=== PATIENT | male | born 1960 | race Caucasian/White ===

== ENCOUNTER 2024-03-06 09:56 | Outpatient (REF) | payer MEDICAID, SELFPAY ==
[2024-03-06 11:27] LABS: MANUAL DIFF FLAG NO
[2024-03-06 11:40] LABS: Basophils Absolute Auto 0.1 X10*3/uL (0.0-0.2); Eosinophils Absolute Auto 0.2 X10*3/uL (0.0-0.4); Eosinophils Percent Auto 3.4 % (0-4); Hematocrit 45.6 % (42.0-52.0); Hemoglobin 15.7 g/dl (14.0-18.0); Imm Gran Abs Auto 0.02 X10*3/uL (0.00-0.03); Imm Gran Pct Auto 0.3 % (0.0-0.4); Lymphocytes Absolute Auto 2.7 X10*3/uL (1.2-4.9); Lymphocytes Percent Auto 38.5 % (20-40); Mean Corpuscular HGB Conc 34.4 g/dl (31.0-36.0); Mean Corpuscular Hemoglobin 33.9 pg (27.0-33.0); Mean Corpuscular Volume 98.5 fL (80.0-98.0); Mean Platelet Volume 11.5 fL (9.4-12.4); Monocytes Percent Auto 13.7 % (2-11); Neutrophils Percent Auto 43.1 % (45-73); Platelet Count 217 X10*3/uL (160-400); Red Blood Count 4.63 X10*6/uL (4.60-5.80); Red Cell Distribution Width 13.8 % (11.0-16.0)
[2024-03-06 12:07] LABS: Albumin Level 4.3 g/dL (3.5-5.0); Alkaline Phosphatase 86 U/L (39-117); Anion Gap 13 (12-20); Aspartate Amino Transferase 27 U/L (5-37); Bilirubin Total 0.4 mg/dL (0.0-1.0); Blood Urea Nitrogen 14 mg/dL (9-16); Calcium 9.8 mg/dL (8.4-10.2); Carbon Dioxide 23 mmol/L (22-29); Chloride 105 mmol/L (96-108); Cholesterol 121 mg/dL (<200); Estimated Glomerular Filt Rate > 60; Glucose Random 163 mg/dL (60-115); HDL Cholesterol 44 mg/dL (>40); LDL Cholesterol Calculated 63 mg/dL (<100); Potassium 3.7 mmol/L (3.3-5.1); Sodium 137 mmol/L (135-145); Total Protein 7.8 g/dL (6.5-8.0); Triglycerides 70 mg/dL (<150)
[2024-03-06 12:27] LABS: Creatinine Urine 71.18 mg/dL; Microalbum/Creatinine Ratio Ur 12.6 ug/mg cr (<30)
[2024-03-06 12:47] LABS: Alanine Aminotransferase 45 U/L (0-40)
== END 2024-03-06 09:57 | disposition home or self-care (01) ==
LOC: HO.HHCL 09:56
PROVIDERS: Visit Provider Internal Medicine Geriatric Medicine
DX: I10 Essential (primary) hypertension (principal); E11.8 Type 2 diabetes mellitus with unspecified complications
CPT/HCPCS: 36415; 80053; 80061; 82043; 82570; 85025

== ENCOUNTER 2024-05-13 09:27 | Outpatient (REF) | payer MEDICAID, SELFPAY ==
--- OUTSIDE RECORDS SUMMARY | 2024-05-13 10:30 | XMS_ITS | Encounter Summary ---
Author Organization [employer] Address [address] [facility] 7t [place] [address] Care Team Providers Care Ammunition Supervisor Name Role Phone Name, Neil MACKEY Primary Care Provider [phone] Encounter Details Date Type Department Care Team (Late st Contact Info) Description 07/10/2022 Orders Only [facility] CHC MED & PEDS [address] [place] [address] Spring Ramirez LPN Social History Tobacco Use Types Packs/Day Years Used Date Smoking Tobacco: Never Assessed Sex and Gender Information Value Date Recorded Sex Assigned at Male 01/30/2022 10:19 AM EDT Legal Sex Male 10:19 AM EDT Gender Identity Male 01/30/2022 10:19 AM EDT Sexual Orientation Straight 01/30/2022 10 :19 AM EDT documented as of this encounter Plan of Treatment Not on file documented as of this encounter Visit Diagnoses Not on filedocumented in this encounter Care Teams Ammunition Supervisor Relationship Specialty Start Date End Date Name, MD Neil [address] [place] [address] PCP - General Family Medicine 03/03/19 documented as of this encounter
--- OUTSIDE RECORDS SUMMARY | 2024-05-13 10:31 | XMS_ITS | Encounter Summary ---
Author Organization [employer] Address [address] [facility] 7t [place] [address] Care Team Providers Care Custodian Name Role Phone Name, Neil MACKEY Primary Care Provider [phone] Reason for Visit * Reason Comments Med Refill Encounter Details Date Type Department Care Team (Late st Contact Info) Description 04/15/2024 Refill [facility] MEDICINE [address] [place], [place] [phone] Name, MD Neil [address] [place] [address] Social History Tobacco Use Types Packs/Day Years Used Date Smoking Tobacco: Former Cigarettes Smokeless Tobacco: Never Alcohol Use Standard Drinks/Week Comments Never 0 (1 standard drink = 0.6 oz pur e alcohol) Depression Answer Date Recorded Patient Health Questionnaire-9 Score 1 03/06/2024 Patient Health Questionnaire-9 Score 1 03/06/2024 Last PHQ-9: Questionnaire Data Not on file 1 05/07/2023 Housing Stability Answer Date Recorded What is your housing situation today? I have yolie de jesus 02/21/[address] you li ve. Do you have problems with any of the following? None of the above 02/21/2024 Food Insecurity Answer Date Recorded Within the past 12 months, y ou worried that your food would run out before you got money to buy more: Never True 02/21/2024 Within the past 12 months,th e food you bought just didn't last and you didn't have enough money to get more: Never True Transportation Answer Date Recorded In the past 12 months, has l ack of transportation kept you from medical appts, meetings, work or from getting things needed for daily living? No 02/21/2024 Utilities Answer Date Recorded In the past 12 months, has t he [employer], gas, oil or water company threatened to shut off services in your home? No 02/21/2024 Depression Answer Date Recorded Patient Health Questionnaire-2 Score 0 03/06/2024 Internet Access Answer Date Recorded Internet Access Q1 Yes 02/21/2024 Internet Access Q2 Not on file 02/21/2024 Sex and Gender Information Value Date Recorded Sex Assigned at Male 01/30/2022 10:19 AM EDT Legal Sex Male 10:19 AM EDT Gender Identity Male 01/30/2022 10:19 AM EDT Sexual Orientation Straight 01/30/2022 10 :19 AM EDT documented as of this encounter Plan of Treatment Not on file documented as of this encounter Visit Diagnoses Not on filedocumented in this encounter Additional Health Concerns Assessment Noted Time PHQ-9 Depression Total Score: 1 03/06/20 24 9:23 AM EST documented as of this encounter Care Teams Custodian Relationship Specialty Start Date End Date Name, MD Neil [address] [place] [address] PCP - General Family Medicine 03/03/19 documented as of this encounter
--- OUTSIDE RECORDS SUMMARY | 2024-05-13 10:31 | XMS_ITS | Encounter Summary ---
Author Organization [employer] Address [address] [facility] 7t [place] [address] Care Team Providers Care Senior Procurement Specialist Name Role Phone Name, Neil MACKEY Primary Care Provider [phone] Reason for Visit * Reason Comments Diabetes Encounter Details Date Type Department Care Team (Latest Contact Info) Description 05/13/2024 9:00 AM EST Office Visit [facility] MEDICINE [address] [place], [place] [phone] Name, MD Neil [address] [place], [place] [phone] Type 2 diabetes mellitus with unspecified complications (CMS/HCC) (Primary Dx); Elevated MCV; Encounter for immunization Social History Tobacco Use Types Packs/Day Years Used Date Smoking Tobacco: Former Cigarettes Passive Smoke Exposure: Past Smokeless Tobacco: Never Tobacco Cessation:Counseling Given: Not Answered Alcohol Use Standard Drinks/Week Comments Never 0 [...] the past 12 months, has t he electric, gas, oil or water company threatened to [...] AM EDT documented as of this encounter Last Filed Vital Signs Vital Sign Reading Time Taken Comments Blood Pressure 130/68 05/13/2024 9:04 AM EST Pulse 66 05/13/2024 9:04 AM EST Temperature 36.7 ??C (98.1 ??F) 05/13/2024 9:04 AM ES T Respiratory Rate 20 05/13/2024 9:04 AM EST Oxygen Saturation - - Inhaled Oxygen Concentration - - Weight 85.3 kg (188 lb) 05/13/2024 9:04 AM EST Height 170.2 cm (5' 7 ) 05/13/2024 9:04 AM EST Body Mass Index 29.44 05/13/2024 9:04 AM EST documented in this encounter Progress Notes * Neil Sumner, - 05/13/2024 9:00 AM EST Subjective Patient ID: Venkatesh Dorantes is a 64 y.o. male who presents for Diabetes. Patient comes for a follow-up visit. He denies any difficulties tolerating higher dose of Jardiance. He does not bring his glucose meter. Blood sugar has improved based on the hemoglobin A1c. He continues to have a liberal diet. The patient tells me he stopped drinking alcohol several years ago. Recent blood work show slightly elevated MCV. I have recommended to go to check B12 and folate levels and TSH. He agrees with PCV 20 and Tdap vaccination today. Review of Systems Constitutional: Negative for chills, fatigue and fever. HENT: Negative for sore throat. Respiratory: Negative for cough, chest tightness and shortness of breath. Cardiovascular: Negative for chest pain, palpitations and leg swelling. Gastrointestinal: Negative for abdominal pain and blood in stool. Visit Vitals BP 130/68 (BP Location: Left arm, Patient Position: Sitting, BP Cuff Size: Adult) Pulse 66 Temp 98.1 ??F (36.7 ??C) (Oral) Resp 20 Ht 5' 7 (1.702 m) Wt 188 lb (85.3 kg) BMI 29.44 kg/m?? Smoking Status Former BSA 2.01 m?? Objective Physical Exam Constitutional: Appearance: Normal appearance. Cardiovascular: Rate and Rhythm: Normal rate and regular rhythm. Heart sounds: No murmur heard. Pulmonary: Effort: Pulmonary effort is normal. No respiratory distress. Breath sounds: No wheezing, rhonchi or rales. Abdominal: Palpations: Abdomen is soft. Tenderness: There is no abdominal tenderness. Musculoskeletal: Right lower leg: No edema. Left lower leg: No edema. Neurological: Mental Status: He is alert. Lab Results Component Value Date HGBA1C 7.3 (A) 05/13/2024 HGBA1C 7.6 (A) 03/06/2024 Latest Reference Range & Units 03/06/24 09:42 03/06/24 09:59 03/06/24 10:00 Glucose 60 - 115 mg/dL 163 (H) Urea Nitrogen (BUN) 9 - 16 mg/dL 14 Creatinine, Serum 0.5 - 1.4 mg/dL 0.94 Sodium 135 - 145 mmol/L 137 Potassium 3.3 - 5.1 mmol/L 3.7 Chloride 96 - 108 mmol/L 105 Carbon Dioxide 22 - 29 mmol/L 23 Calcium 8.4 - 10.2 mg/dL 9.8 Albumin Level 3.5 - 5.0 g/dL 4.3 Bilirubin, Total 0.0 - 1.0 mg/dL 0.4 AST 5 - 37 U/L 27 ALT 0 - 40 U/L 45 (H) Anion Gap 12 - 20 13 Total Protein 6.5 - 8.0 g/dL 7.8 Cholesterol <200 mg/dL 121 HDL Cholesterol >40 mg/dL 44 LDL Cholesterol Calculated <100 mg/dL 63 Triglycerides <150 mg/dL 70 Glucose Blood, POC 60 - 200 mg/dL 189 Red Blood Count 4.60 - 5.80 X10*6/uL 4.63 Hemoglobin 14.0 - 18.0 g/dl 15.7 Hematocrit 42.0 - 52.0 % 45.6 Mean Corpuscular Volume 80.0 - 98.0 fL 98.5 (H) Mean Corpuscular Hemoglobin 27.0 - 33.0 pg 33.9 (H) Mean Corpuscular HGB Conc 31.0 - 36.0 g/dl 34.4 Red Cell Distribution Width 11.0 - 16.0 % 13.8 Platelet Count 160 - 400 X10*3/uL 217 Eosinophils Percent Auto 0 - 4 % 3.4 Lymphocytes Absolute Auto 1.2 - 4.9 X10*3/uL 2.7 Basophils Absolute Auto 0.0 - 0.2 X10*3/uL 0.1 Monocytes Absolute Auto 0.1 - 1.2 X10*3/uL 1.0 Neutrophils Absolute Auto 2.0 - 8.3 x10*3/uL 3.0 Neutrophils Percent Auto 45 - 73 % 43.1 (L) Basophils Percent Auto 0 - 2 % 1.0 Eosinophils Absolute Auto 0.0 - 0.4 X10*3/uL 0.2 Lymphocytes Percent Auto 20 - 40 % 38.5 Monocytes Percent Auto 2 - 11 % 13.7 (H) Imm Gran Abs Auto 0.00 - 0.03 X10*3/uL 0.02 Imm Gran Pct Auto 0.0 - 0.4 % 0.3 Hemoglobin A1c 4.0 - 6.0 % 7.6 ! Microalbumin Urine mg/L 9.0 Alkaline Phosphatase 39 - 117 U/L 86 Creatinine, Urine mg/dL 71.18 Estimated Glomerular Filt Rate >60 Mean Platelet Volume 9.4 - 12.4 fL 11.5 Microalbum Creatinine Ratio Ur <30 ug/mg cr 12.6 NRBC Abs Auto 0.0 - 0.012 X10*3/uL 0.000 NRBC Pct Auto 0.0 - 0.2 /100WBC 0.0 QC Media Lot # [id number] White Blood Count 4.8 - 10.8 X10*3/uL 7.0 (H): Data is abnormally high (L): Data is abnormally low !: Data is abnormal Current Outpatient Medications on File Prior to Visit Medication Sig Dispense Refill albuterol (Ventolin HFA) 108 (90 Base) MCG/ACT inhaler Inhale 2 puffs by mouth every 4 to 6 hours as needed 18 g 3 amLODIPine (Norvasc) 10 MG tablet Take 1 tablet (10 mg) by mouth Once per day. 90 tablet 2 Aspirin Low Dose 81 MG EC tablet TAKE 1 TABLET BY MOUTH EVERY MORNING 90 tablet 1 atorvastatin (Lipitor) 40 MG tablet Take 1 tablet (40 mg) by mouth Once per day. 90 tablet 1 empagliflozin (Jardiance) 25 MG Take 1 tablet (25 mg) by mouth Once per day. 90 tablet 2 folic acid (Folvite) 1 MG tablet TAKE 1 TABLET BY MOUTH EVERY DAY 90 tablet 1 hydroCHLOROthiazide (HYDRODiuril) 25 MG tablet Take 1 tablet (25 mg) by mouth Once per day. 90 tablet 1 ipratropium-albuterol (Duo-Neb) 0.5-2.5 mg/3 mL nebulizer solution USE 3 ML VIA NEBULIZER FOUR TIMES DAILY 90 mL 3 lisinopril 40 MG tablet TAKE 1 TABLET BY MOUTH EVERY DAY 90 tablet 1 metFORMIN (Glucophage) 1000 MG tablet TAKE 1 TABLET BY MOUTH TWICE DAILY WITH THE MORNING AND EVENING MEAL 180 tablet 0 metoprolol succinate XL (Toprol-XL) 25 MG 24 hr tablet Take 1 tablet (25 mg) by mouth Once per day.Do not crush or chew. 90 tablet 1 tiotropium (Spiriva HandiHaler) [address] 1 capsule into inhaler and inhale. tiotropium (Spiriva HandiHaler) 18 MCG inhalation capsule INHALE THE CONTENTS OF 1 CAPSULE VIA INHALATION DEVICE EVERY DAY 30 capsule 2 No current facility-administered medications on file prior to visit. Assessment/Plan Diagnoses and all orders for this visit: Type 2 diabetes mellitus with unspecified complications (CMS/HCC) Comments: Continue current medications, avoid sweets and soda, walk daily, PCV 20 and Tdap vaccine today Orders: - POCT Glucose - POCT HGB A1C Elevated MCV Comments: Patient is not drinking alcohol in several years. Check B12 and folate levels and TSH. Orders: - TSH W/Reflex to FT4; Future Encounter for immunization - PCV-20 VACCINE 6 wks + - Tdap vaccine greater than or equal to 7 years old IM documented in this encounter Plan of Treatment Scheduled Orders Name Type Priority Associated Diagnoses Orde r Schedule TSH W/Reflex to FT4 Lab Routine Elevated MCV Expected: 05/13/2024 (Approximate), Expires: 05/13/2025 documented as of this encounter Procedures Procedure Name Priority Date/Time Associated Diagnosis Comments POCT GLYCATED HEMOGLOBIN, TOTAL Routine 05/13/2024 9:06 AM EST Type 2 diabetes mellitus with unspecified complications (CMS/HCC) POCT GLUCOSE Routine 05/13/2024 9:05 AM EST Type 2 diabetes mellitus with unspecified complications (CMS/HCC) documented in this encounter Results * (ABNORMAL) POCT HGB A1C (05/13/2024 9:06 AM EST) Hemoglobin A1C 7.3(A) 4.0 - 6.0 % QC Media Lot # [id number] Lot# Expiration Date , Blood 05/13/2024 9:06 AM EST us Neli Sumner MD POINT OF CARE TEST ENTER/EDIT OR DERABLES Final Result * POCT Glucose (05/13/2024 9:05 AM EST) Glucose Blood, POC 163 60 - 200 mg/dL Comment:Fasting QC Media Lot # [id number] Lot# Expiration Date [id number] Blood Capillary blood specimen / Unknown 05/13/2024 9:05 AM EST us Neil Sumner MD POINT OF CARE TEST ENTER/EDIT OR DERABLES Final Result documented in this encounter Visit Diagnoses Diagnosis Type 2 diabetes mellitus with unspecified complications (CMS/HCC)- Primary Elevated MCV Other abnormality of red blood cells Encounter for immunization documented in this encounter Additional Health Concerns Assessment Noted Time PHQ-9 Depression Total Score: 1 03/06/20 24 9:23 AM EST documented as of this encounter Care Teams Senior Procurement Specialist Relationship Specialty Start Date End Date Name, MD Neil [address] [place] [address] PCP - General Family Medicine 03/03/19 documented as of this encounter
--- OUTSIDE RECORDS SUMMARY | 2024-05-13 10:31 | XMS_ITS | Encounter Summary ---
Author Organization [employer] Address [address] [facility] [address] [place] [address] Care Team Providers Care Lead Sprinkler Name Role Phone Name, Neil MACKEY Primary Care Provider [phone] Encounter Details Date Type Department Care Team (Late st Contact Info) Description 10/31/2022 Orders Only [facility] CHC MED & PEDS [address] [place] [address] Spring Ramirez LPN Social History Tobacco Use [...] on filedocumented in this encounter Care Teams Lead Sprinkler Relationship Specialty Start Date End Date Name, MD Neil [address] [place] [address] PCP - General Family Medicine 03/03/19 documented as of this encounter
--- OUTSIDE RECORDS SUMMARY | 2024-05-13 10:31 | XMS_ITS | Clinical Summary ---
Author Organization [facility] it[facility] Address [address] [place] [address] Care Team Providers Care Nat Instructor Name Role Phone Unavailable Primary Care Provider Unavailabl e Social History Tobacco Use Types Packs/Day Years Used Date Smoking Tobacco: Never Assessed Sex and Gender Information Value Date Recorded Sex Assigned at Not on file Legal Sex Male 2:29 AM EST Gender Identity Not on file Sexual Orientation Not on file Plan of Treatment Health Maintenance Due Date Last Done Comments DTaP,Tdap,and Td Vaccines (1 - Tdap) 1967 Pneumococcal Vaccine: 50+ Ye ars (1 of 1 - PCV) 2010 Zoster Vaccines (1 of 2) 2010 COVID-19 Vaccine ( - 2023-2 5 season) 2023 Influenza Vaccine (#1) 2023 RSV Immunization Patients 60 + Years Old (1 - 1-dose 75+ series) 2035 HIB Vaccines Aged Out No longer eligi ble based on patient's age to complete this topic HPV Vaccines Aged Out No longer eligi ble based on patient's age to complete this topic Hepatitis A Vaccines Aged Out No long er eligible based on patient's age to complete this topic Hepatitis B Vaccines Aged Out No long er eligible based on patient's age to complete this topic IPV Vaccines Aged Out No longer eligi ble based on patient's age to complete this topic MMR Vaccines Aged Out No longer eligi ble based on patient's age to complete this topic Meningococcal ACWY Vaccine Aged Out N o longer eligible based on patient's age to complete this topic Meningococcal B Vacine Aged Out No lo nger eligible based on patient's age to complete this topic Pneumococcal Vaccine: Pediat rics (0 to 5 Years) and At-Risk Patients (6 to 64 Years) Aged Out No longer eligible b ased on patient's age to complete this topic RSV Immunization Patients Un be 20 months Aged Out No longer eligible b ased on patient's age to complete this topic Varicella Vaccines Aged Out No longer eligible based on patient's age to complete this topic
--- OUTSIDE RECORDS SUMMARY | 2024-05-13 10:31 | XMS_ITS | Encounter Summary ---
Author Organization [employer] Address [address] [place] [address] [address] [place] [address] Care Team Providers Care Awning Craftsperson Name Role Phone Name, Neil MACKEY Primary Care Provider [phone] Reason for Visit * Reason Comments Med Refill Encounter Details Date Type Department Care Team (Late st Contact Info) Description 03/10/2023 Refill [facility] MEDICINE [address] [place] [phone] Name, MD Neil [address] [place] [address] Social History Tobacco Use Types Packs/Day Years [...] on filedocumented in this encounter Care Teams Awning Craftsperson Relationship Specialty Start Date End Date Name, MD Neil [address] [place] [address] PCP - General Family Medicine 03/03/19 documented as of this encounter
--- OUTSIDE RECORDS SUMMARY | 2024-05-13 10:31 | XMS_ITS | Encounter Summary ---
Author Organization [employer] Address [address] [facility] [address]t [place] [address] Care Team Providers Care Fern Cutter Name Role Phone Name, Neil MACKEY Primary Care Provider [phone] Encounter Details Date Type Department Care Team (Late st Contact Info) Description 01/25/2023 Orders Only [facility] CHC MED & PEDS [address] [place] [address] Spring Ramirez LPN Social History Tobacco Use [...] on filedocumented in this encounter Care Teams Fern Cutter Relationship Specialty Start Date End Date Name, MD Neil [address] [place] [address] PCP - General Family Medicine 03/03/19 documented as of this encounter
--- OUTSIDE RECORDS SUMMARY | 2024-05-13 10:31 | XMS_ITS | Encounter Summary ---
Author Organization [employer] Address [address] [place] [address] [address] [place] [address] Care Team Providers Care Product/Industry Consultant Name Role Phone Name, Neil MACKEY Primary Care Provider [phone] Encounter Details Date Type Department Care Team (Late st Contact Info) Description 10/10/2022 Orders Only [facility] MEDICINE [address] [place], [place] [phone] Diana Morales LPN Social History Tobacco Use Types Packs/Day [...] on filedocumented in this encounter Care Teams Product/Industry Consultant Relationship Specialty Start Date End Date Name, MD Neil [address] [place] [address] PCP - General Family Medicine 03/03/19 documented as of this encounter
--- OUTSIDE RECORDS SUMMARY | 2024-05-13 10:31 | XMS_ITS | Encounter Summary ---
Author Organization [employer] Address [address] [place] [address] [address] [place] [address] Care Team Providers Care Glost Tile Sorter Name Role Phone Name, Neil MACKEY Primary Care Provider [phone] Reason for Visit * Reason Comments Med Refill Encounter Details Date Type Department Care Team (Late st Contact Info) Description 01/11/2023 Refill [facility] MEDICINE [address] [place] [address] Maribel Carpenter MD [address] [place] [address] Social History Tobacco Use Types Packs/Day Years [...] on filedocumented in this encounter Care Teams Glost Tile Sorter Relationship Specialty Start Date End Date Name, MD Neil [address] [place] [address] PCP - General Family Medicine 03/03/19 documented as of this encounter
--- OUTSIDE RECORDS SUMMARY | 2024-05-13 10:31 | XMS_ITS | Encounter Summary ---
Author Organization [employer] Address [address] [facility] [address]t [place] [address] Care Team Providers Care Brake Repair Supervisor Name Role Phone Name, Neil MACKEY Primary Care Provider [phone] Reason for Visit * Reason Onset Date Comments chartprep 05/12/2024 Encounter Details Date Type Department Care Team (Late st Contact Info) Description 05/12/2024 Telephone [facility] MEDICINE [address] [place] [address] Silvana Shankar MA chartprep Social History Tobacco Use Types Packs/Day Years [...] is your housing situation today? I have yoliemaisha de jesus 02/21/[address] [...] AM EDT documented as of this encounter Miscellaneous Notes * Telephone Encounter - Silvana Shankar MA - 05/12/2024 10:23 AM EST Chart Prep Labs: done except vitamin 12 Images: done Vaccines due: Tdap Due, Hep A Due, PCV20 Due, RSV in Pharmacy Due, and Shingles in pharmacy Due Referrals: Completed Screenings: Colonoscopy and HIV screening Overdue care gaps: A1C and Glucose documented in this encounter Plan of Treatment Not on file documented as of this encounter Visit Diagnoses Not on filedocumented in this encounter Additional Health Concerns Assessment Noted Time PHQ-9 Depression Total Score: 1 03/06/20 24 9:23 AM EST documented as of this encounter Care Teams Brake Repair Supervisor Relationship Specialty Start Date End Date Name, MD Neil [address] [place] [address] PCP - General Family Medicine 03/03/19 documented as of this encounter
--- OUTSIDE RECORDS SUMMARY | 2024-05-13 10:31 | XMS_ITS | Clinical Summary ---
Author Organization [employer] Address [address] [facility] [address] [place] [address] Care Team Providers Care Malted Milk Supervisor Name Role Phone Name, Neil MACKEY Primary Care Provider [phone] Allergies No known active allergies Medications ipratropium-alb uterol (Duo-Neb) 0.5-2.5 mg/3 mL nebulizer solution USE 3 ML VIA NEBULIZER FOUR TIMES DAILY 90 mL 3 07/26/19 23 Active albuterol (Ventolin HFA) 108 (90 Base) MCG/ACT inhalerIndicati ons:Asthma, unspecified asthma severity, unspecified whether complicated, unspecified whether persistent Inhale 2 puffs by mouth every 4 to 6 hours as needed 18 g 3 01/16/20 24 Active amLODIPine (Norvasc) 10 MG tabletIndicatio ns:Hypertension , unspecified type Take 1 tablet (10 mg) by mouth Once per day. 90 tablet 2 01/16/20 24 Active atorvastatin (Lipitor) 40 MG tablet Take 1 tablet (40 mg) by mouth Once per day. 90 tablet 1 01/16/20 24 Active lisinopril 40 MG tabletIndicatio ns:Hypertension , unspecified type TAKE 1 TABLET BY MOUTH EVERY DAY 90 tablet 1 01/16/20 24 Active folic acid (Folvite) 1 MG tablet TAKE 1 TABLET BY MOUTH EVERY DAY 90 tablet 1 01/16/20 24 Active hydroCHLOROthia zide (HYDRODiuril) 25 MG tabletIndicatio ns:Hypertension , unspecified type Take 1 tablet (25 mg) by mouth Once per day. 90 tablet 1 01/16/20 24 Active metoprolol succinate XL (Toprol-XL) 25 MG 24 hr tabletIndicatio ns:Hypertension , unspecified type Take 1 tablet (25 mg) by mouth Once per day. Do not crush or chew. 90 tablet 1 01/16/20 24 Active metFORMIN (Glucophage) 1000 MG tabletIndicatio ns:Type 2 diabetes mellitus with other specified complication, unspecified whether fdc insulin use (CMS/HCC) TAKE 1 TABLET BY MOUTH TWICE DAILY WITH THE MORNING AND EVENING MEAL 180 tablet 02/01/20 24 Active tiotropium (Spiriva HandiHaler) [address] 1 capsule into inhaler and inhale. 07/20/19 22 Active empagliflozin (Jardiance) 25 MG Take 1 tablet (25 mg) by mouth Once per day. 90 tablet 2 03/06/20 24 025 Active Aspirin Low Dose 81 MG EC tabletIndicatio ns:Type 2 diabetes mellitus with other specified complication, unspecified whether fdc insulin use (CMS/HCC) TAKE 1 TABLET BY MOUTH EVERY MORNING 90 tablet 1 03/31/20 24 Active tiotropium (Spiriva HandiHaler) 18 MCG inhalation capsule INHALE THE CONTENTS OF 1 CAPSULE VIA INHALATION DEVICE EVERY DAY 30 capsule 2 04/18/19 25 Active tiotropium (Spiriva HandiHaler) 18 MCG inhalation capsule INHALE THE CONTENTS OF 1 CAPSULE VIA INHALATION DEVICE EVERY DAY 30 capsule 2 01/16/20 24 025 Discontinued Active Problems Problem Noted Date Diagnosed Date Arteriosclerosis of coronary artery 03/06/2024 Cigarette smoker 03/06/2024 Class 1 obesity 03/06/2024 Intracranial aneurysm 03/06/2024 Obstructive sleep apnea syndrome 01/02/2018 Mild chronic obstructive pulmonary disease 09/13 Tobacco dependence syndrome 07/12/2015 Hyperlipidemia 06/10/2015 Knee pain 06/10/2015 Spinal stenosis in cervical region 01/07/2015 Type 2 diabetes mellitus 01/07/2015 Hypertension 12/28/2014 Encounters Date Type Department Care Team Description 05/13/2024 9:00 AM EST Office Visit [facility] [address] [place] [address] Name, MD Neil Type 2 diabetes mellitus with unspecified complications (CMS/HCC) (Primary Dx); Elevated MCV; Encounter for immunization 05/13/2024 Travel 05/12/2024 Telephone [facility] MEDICINE [address] [place] [address] Silvana Shankar MA chartprep 04/15/2024 Refill [facility] [address] [place] [phone] Neil Sumner MD 03/31/2024 Refill [facility] [address] [place] [phone] Neil Sumner MD Type 2 diabetes mellitus with other specified complication, unspecified whether fdc insulin use ([facility]/HCC) 03/19/2024 Telephone [facility] MED[facility]INE [address] [place] [phone] Neil Sumner MD 03/06/2024 9:15 AM EST Office Visit [facility] MED[facility]INE [address] [place] [address] [phone] Neil Sumner MD Type 2 diabetes mellitus with unspecified complications ([facility]) (Primary Dx); Hypertension, unspecified type; Encounter for immunization; Hypertrophic toenail 03/06/2024 Telephone [facility] [address] [place] [address] [phone] Neil Sumner MD 03/06/2024 Travel 03/04/2024 Telephone [facility] [address] [place] [phone] Mirela Chaudhari MA Chart Prep 02/21/2024 Patient Outreach [facility] PEDS [address] [place], [place] [phone] Neil Sumner MD Pre-visit Planning (SDOH negative, Tobacco screening negative. ) from Last 3 Months Immunizations Name Administration Dates Next Due Influenza injectable quadriv alent IIV4 with preservative 12/28/2014 Influenza injectable quadriv alent preservative free 01/05/2021,01/19/2020 Influenza, IIV3, injectable 01/05/2021, 0,12/28/2014 Influenza, seasonal, injecta ble, preservative free 03/06/2024 Pfizer Covid-19 Vaccine 12+ 03/06/2024 Pneumococcal Conjugate PCV 20 05/13/2024 Pneumococcal Polysaccharide PPSV23 07/03/2015 Tdap 05/13/2024 Family History Medical History Relation Name Comments Liver cancer Brother Asthma Father Relation Name Status Comments Brother Father Social History Tobacco Use Types Packs/Day Years [...] Orientation Straight 01/30/2022 10 :19 AM EDT Last Filed Vital Signs Vital Sign Reading Time Taken Comments Blood Pressure 130/68 05/13/2024 9:04 AM EST Pulse 66 05/13/2024 9:04 AM EST Temperature 36.7 ??C (98.1 ??F) 05/13/2024 9:04 AM ES T Respiratory Rate 20 05/13/2024 9:04 AM EST Oxygen Saturation 94% 03/06/2024 9:15 AM EST Inhaled Oxygen Concentration - - Weight 85.3 kg (188 lb) 05/13/2024 9:04 AM EST Height 170.2 cm (5' 7 ) 05/13/2024 9:04 AM EST Body Mass Index 29.44 05/13/2024 9:04 AM EST Plan of Treatment Health Maintenance Due Date Last Done Comments CT Colonography 1960 Colonoscopy 1960 Colorectal Cancer Screening 1960 FIT DNA/Cologuard 1960 FIT 1960 FOBT 1960 HIV Screening 1960 Sigmoidoscopy 1960 Eye Exam 1970 Hepatitis C Screening 1978 Hepatitis A Vaccines (1 of 2 - Risk 2-dose series) 1979 Zoster Vaccines (1 of 2) 2010 RSV Patients and Patients Aged 60 years or older (1 - Risk 60-74 years 1-dose series) 2020 Diabetes: Hemoglobin A1C 08/10/2024 05/13/2024, 12/08/2023 Alcohol/Substance Use Screening 03/06/2025 03/06/2024 Depression Screening 03/06/2025 03/06/2024, 03/06/20 24 Diabetes: Foot Exam 03/06/2025 03/06/2024, 03/06/2024, 03/06/2024, Additional history exists Diabetes: Urine Protein Screening 03/06/2025 03/06/2024, 01/13/2021 Lipid Panel 03/06/2025 03/06/2024, 01/13/2021 SDOH Screening 03/06/2025 03/06/2024 Tobacco Screening 05/13/2025 05/13/2024 DTaP/Tdap/Td Vaccines (2 - Td or Tdap) 05/13/2034 05/13/2024 COVID-19 Vaccine Completed 03/06/2024, 06/03/2021 Influenza Vaccine Completed 03/06/2024, , 01/05/2021, Additional history exists Pneumococcal Vaccine: 50+ Years Completed 05/13/2024, 07/03/2015 HIB Vaccines Aged Out No longer eligi [...] patient's age to complete this topic Meningococcal Vaccine Aged Out No loly kenji eligible based on patient's age to complete this topic RSV under 20 months Aged Out No longe r eligible based on patient's age to complete this topic Rotavirus Vaccines Aged Out No longer eligible based on patient's age to complete this topic Procedures Procedure Name Priority Date/Time Associated Diagnosis Comments POCT GLYCATED HEMOGLOBIN, TOTAL Routine 05/13/2024 9:06 AM EST Type 2 diabetes mellitus with unspecified complications (CMS/HCC) POCT GLUCOSE Routine 05/13/2024 9:05 AM EST Type 2 diabetes mellitus with unspecified complications (CMS/HCC) LIPID PANEL, STANDARD Routine 03/06/2024 10:00 AM EST Hypertension, unspecified type Type 2 diabetes mellitus with unspecified complications (CMS/HCC) COMPREHENSIVE METABOLIC PANEL Routine 03/06/2024 10:00 AM EST Hypertension, unspecified type Type 2 diabetes mellitus with unspecified complications (CMS/HCC) CBC WITH AUTO DIFFERENTIAL Routine 03/06/2024 10:00 AM EST Hypertension, unspecified type Type 2 diabetes mellitus with unspecified complications (CMS/HCC) ALBUMIN, RANDOM URINE W/CREATININE Routine 03/06/2024 9:59 AM EST Hypertension, unspecified type Type 2 diabetes mellitus with unspecified complications (CMS/HCC) POCT GLYCATED HEMOGLOBIN, TOTAL Routine 03/06/2024 9:42 AM EST Type 2 diabetes mellitus with unspecified complications (CMS/HCC) POCT GLUCOSE Routine 03/06/2024 9:42 AM EST Type 2 diabetes mellitus with unspecified complications (CMS/HCC) from Last 3 Months Results * (ABNORMAL) POCT HGB A1C (05/13/2024 9:06 AM EST) Only the most recent of2 resultswithin the time period is included. Pathologist [facility] Hemoglobin A1C 7.3(A) 4.0 - 6.0 % QC Media Lot # [id number] Lot# Expiration Date Blood 05/13/2024 9:06 AM EST Neil Name POINT OF CARE TEST ENTER/EDIT OR DERABLES Final Result * POCT Glucose (05/13/2024 9:05 AM EST) Only the most recent of2 resultswithin the time period is included. Pathologist [facility] Glucose Blood, POC 163 60 - 200 mg/dL Comment:Fasting QC Media Lot # [id number] Lot# Expiration Date Blood Capillary blood specimen / Unknown 05/13/2024 9:05 AM EST Neil Name POINT OF CARE TEST ENTER/EDIT OR DERABLES Final Result * (ABNORMAL) CBC auto differential (03/06/2024 10:00 AM EST) [facility] White Blood Count 7.0 4.8 - 10.8 X10*3/uL [facility] Red Blood Count 4.63 4.60 - 5.80 X10*6/uL [facility] Hemoglobin 15.7 14.0 - 18.0 g/dl [facility] Hematocrit 45.6 42.0 - 52.0 % [facility] Mean Corpuscular Volume 98.5(H) 80.0 - 98.0 fL [facility] Mean Corpuscular Hemoglobin 33.9(H) 27.0 - 33.0 pg [facility] Mean Corpuscular HGB Conc 34.4 31.0 - 36.0 g/dl [facility] Red Cell Distribution Width 13.8 11.0 - 16.0 % [facility] Platelet Count 217 160 - 400 X10*3/uL [facility] Mean Platelet Volume 11.5 9.4 - 12.4 fL [facility] Neutrophils Percent Auto 43.1(L) 45 - 73 % [facility] Imm Gran Pct Auto 0.3 0.0 - 0.4 % [facility] Lymphocytes Percent Auto 38.5 20 - 40 % [facility] Monocytes Percent Auto 13.7(H) 2 - 11 % [facility] Eosinophils Percent Auto 3.4 0 - 4 % [facility] Basophils Percent Auto 1.0 0 - 2 % [facility] NRBC Pct Auto 0.0 0.0 - 0.2 /100WBC [facility] Neutrophils Absolute Auto 3.0 2.0 - 8.3 x10*3/uL [facility] Imm Gran Abs Auto 0.02 0.00 - 0.03 X10*3/uL [facility] Lymphocytes Absolute Auto 2.7 1.2 - 4.9 X10*3/uL [facility] Monocytes Absolute Auto 1.0 0.1 - 1.2 X10*3/uL [facility] Eosinophils Absolute Auto 0.2 0.0 - 0.4 X10*3/uL [facility] Basophils Absolute Auto 0.1 0.0 - 0.2 X10*3/uL [facility] NRBC Abs Auto 0.000 0.0 - 0.012 X10*3/uL [facility] Blood Venous blood specimen / Unknown 03/06/2024 10:00 AM EST 03/06/2024 11:24 AM EST us Neil Sumner MD LAB BLOOD ORDERABLES Final Resul t [facility] [address] [place] [address] [phone] * Lipid Panel, Standard (03/06/2024 10:00 AM EST) Triglycerides 70 <150 mg/dL [facility] Comment:Desirable Triglyceri de: less than 150 mg/dLBorderline High Triglyceride 150-199 mg/dLHigh Triglyceride: 200-499 mg/dLVery High Triglyceride: greater than or equal to 5OO mg/dL Cholesterol 121 <200 mg/dL [facility] Comment:Desirable Cholestero l: less than 200 mg/dLBorderline High Cholesterol: 200-239 mg/dLHigh Cholesterol: greater than 239 mg/dL LDL Cholesterol Calculated 63 <100 mg/dL [facility] Comment:Desirable LDL: less than 100 mg/dLNear Optimal/Above Optimal LDL: 110- 129 mg/dLBorderline High LDL: 130-159 mg/dLHigh LDL: 160-189 mg/dLVery High LDL: greater than or equal to 190 mg/dL HDL Cholesterol 44 >40 mg/dL [facility] Comment:Desirable HDL: great er than 40 mg/dL Note: This HDL assay may give artificially low results in patients with liver disease. Blood Venous blood specimen / Unknown 03/06/2024 10:00 AM EST 03/06/2024 11:25 AM EST us Neil Name LAB BLOOD ORDERABLES Final Resul t [facility] [address] [place] [address] [phone] * (ABNORMAL) Comprehensive Metabolic Panel (03/06/2024 10:00 AM EST) Sodium 137 135 - 145 mmol/L [facility] Potassium 3.7 3.3 - 5.1 mmol/L [facility] Chloride 105 96 - 108 mmol/L [facility] Carbon Dioxide 23 22 - 29 mmol/L [facility] Anion Gap 13 12 - 20 [facility] Urea Nitrogen (BUN) 14 9 - 16 mg/dL [facility] Creatinine, Serum 0.94 0.5 - 1.4 mg/dL [facility] Estimated Glomerular Filt Rate >60 [facility] Comment:Chronic Kidney Disea se: Estimated GFR < 60 mL/min/[id number] Kidney Disease: Estimated GFR < 15 mL/min/1.73m2 Glucose 163(H) 60 - 115 mg/dL [facility] Calcium 9.8 8.4 - 10.2 mg/dL [facility] Bilirubin, Total 0.4 0.0 - 1.0 mg/dL [facility] Aspartate Amino Transferase 27 5 - 37 U/L [facility] Alanine Aminotransferase 45(H) 0 - 40 U/L [facility] Total Protein 7.8 6.5 - 8.0 g/dL [facility] Albumin Level 4.3 3.5 - 5.0 g/dL [facility] Alkaline Phosphatase 86 39 - 117 U/L [facility] Blood Venous blood specimen / Unknown 03/06/2024 10:00 AM EST 03/06/2024 11:25 AM EST us Neil Sumner MD LAB BLOOD ORDERABLES Final Resul t Performing Organization Address [facility] Co de Phone Number [facility] [address] [place] [address] [phone] * Albumin, Random Urine W/Creatinine (03/06/2024 9:59 AM EST) Creatinine, Urine 71.18 mg/dL [facility] Microalbumin Urine 9.0 mg/L [facility] Microalbum Creatinine Ratio Ur 12.6 <30 ug/mg cr [facility] Comment:Albumin/Creatinine R atio Reference Ranges: Normal: < 30 ug/mg creatinine Microalbuminuria: 30 - 300 ug/mg creatinineClinical Albuminuria: > 300 ug/mg creatinine Urine (Urine, Random) 03/06/2024 9:59 AM EST 03/06/2024 11:13 AM EST us Neil Sumner MD LAB URINE ORDERABLES Final Resul t Performing Organization Address [facility] Co de Phone Number [facility] [address] [place] [address] [phone] from Last 3 Months Insurance [facility] Care Teams Malted Milk Supervisor Relationship Specialty Start Date End Date Name, MD Neil [address] [place] [phone] PCP - General Family Medicine 03/03/19
--- OUTSIDE RECORDS SUMMARY | 2024-05-13 10:31 | XMS_ITS | Encounter Summary ---
Author Organization [employer] Address [address] [facility] 7t [place] [address] Care Team Providers Care Planer Hand Name Role Phone Name, Neil MACKEY Primary Care Provider [phone] Encounter Details Date Type Department Care Team (Late st Contact Info) Description 07/25/2022 Orders Only [facility] PEDS [address] [place] [address] Spring Ramirez LPN Social History Tobacco Use [...] on filedocumented in this encounter Care Teams Planer Hand Relationship Specialty Start Date End Date Name, MD Neil [address] [place] [address] PCP - General Family Medicine 03/03/19 documented as of this encounter
--- OUTSIDE RECORDS SUMMARY | 2024-05-13 10:32 | XMS_ITS | Encounter Summary ---
Author Organization [employer] Address [address] [place] [address] 7t [place] [address] Care Team Providers Care Email Manager Name Role Phone Name, Neil MACKEY Primary Care Provider [phone] Reason for Visit * Reason Comments Med Refill Encounter Details Date Type Department Care Team (Late st Contact Info) Description 09/21/2023 Refill [facility] MED[facility]INE [address] [place] [phone] Name, MD Neil [address] [place] [address] Social History Tobacco Use Types Packs/Day Years [...] on filedocumented in this encounter Care Teams Email Manager Relationship Specialty Start Date End Date Name, MD Neil [address] [place] [phone] PCP - General Family Medicine 03/03/19 documented as of this encounter
--- OUTSIDE RECORDS SUMMARY | 2024-05-13 10:32 | XMS_ITS | Encounter Summary ---
Author Organization [employer] Address [address] [facility] 7t [place] [address] Care Team Providers Care Life Enrichment Assistant Name Role Phone Name, Neil MACKEY Primary Care Provider [phone] Encounter Details Date Type Department Care Team (Latest Contact Info) Description 05/13/2024 Travel Social History Tobacco Use Types Packs/Day Years Used Date Smoking Tobacco: Former Cigarettes Passive Smoke Exposure: Past Smokeless Tobacco: Never Alcohol Use Standard Drinks/Week [...] documented as of this encounter Care Teams Life Enrichment Assistant Relationship Specialty Start Date End Date Name, MD Neil [address] [place] [address] PCP - General Family Medicine 03/03/19 documented as of this encounter
--- OUTSIDE RECORDS SUMMARY | 2024-05-13 10:32 | XMS_ITS | Encounter Summary ---
Author Organization [employer] Address [address] [place] [address] [address]t [place] [address] Care Team Providers Care Drug Coordinator Name Role Phone NameNeil MD Primary Care Provider [phone] Reason for Visit * Reason Comments Med Refill Encounter Details Date Type Department Care Team (Late st Contact Info) Description 01/11/2024 Refill [facility] MEDICINE [address] [place] [address] [phone] NameNeil MD [address] [place] [address] Hypertension, unspecified type Social History Tobacco Use Types Packs/Day Years [...] documented as of this encounter Visit Diagnoses Diagnosis Hypertension, unspecified type documented in this encounter Care Teams Drug Coordinator Relationship Specialty Start Date End Date Name, MD Neil [address] [place] [phone] PCP - General Family Medicine 03/03/19 documented as of this encounter
[2024-05-13 11:47] LABS: TSH reflex Free T4 0.55 uIU/mL (0.32-4.0)
[2024-05-13 12:04] LABS: Folate > 20.0 ng/mL (> or = 4.0); Vitamin B12 278 pg/mL (200-900)
== END 2024-05-13 09:28 | disposition home or self-care (01) ==
LOC: HO.HHCL 09:27
PROVIDERS: Visit Provider Internal Medicine Geriatric Medicine
DX: R71.8 Other abnormality of red blood cells (principal)
CPT/HCPCS: 36415; 82607; 82746; 84443